=== PATIENT | female | born 1975 | race Caucasian/White ===

== ENCOUNTER 2017-02-01 20:17 | Emergency (ER) | payer MEDICAID, OTHER ==
[~2017-02-01] VITALS: Ht 160 cm; Wt 102.5 kg
[~2017-02-01 20:17] MED LIST: CELE40TA PO; GLUCTAB PO; METF-324 PO; SPIR100 PO; SPRI28TA PO; SYNT112T PO
[2017-02-01 20:22] VITALS: BP 162/89; PULSE 127; RESP 20; TEMP 100.3; O2SAT 94
[2017-02-01 20:35] VITALS: BP 135/85; PULSE 114; RESP 16; O2SAT 95
--- NOTE | 2017-02-01 20:53 | PD ---
HPI Chief Complaint: Fever Time Seen by Provider: 20:50 Travel History International Travel<30 days: No Contact w/Intl Traveler<30days: No Traveled to known affect area: No History of Present Illness HPI The patient is a 41-year-old female that complains of a fever (she did not take her temperature at home), nausea with vomiting, sore throat, dizziness, bilateral ear pain which is intermittent and low back/right hip pain. The patient's symptoms started yesterday morning. She denies any cough or shortness of breath. She denies any diarrhea. She denies any blood in the vomitus. PFSH Past Medical History Anxiety: Yes Diminished Hearing: No Reproductive: Yes (POLYCISTIC OVARIES) Immunizations Current: Yes Thyroid Disease: Yes Influenza Vaccination: No ?: Not LMP: 2 WEEKS AGO : 2 Para: 2 Ovarian Cysts: Yes Past Surgical History Section: Yes (X2) Social History Alcohol Use: No Tobacco Use: No (QUIT 1997) Substance Use: No Allergies-Medications (Allergen,Severity, Reaction): Uncoded Allergies: SILK TAPE (Allergy, Severe, HIVES, 02/01/17) Reported Meds & Prescriptions Reported Meds & Active Scripts Active Reported Non-Aspirin Extra Strength (Acetaminophen) 500 Mg Tab 1,000 Mg PO ONCE Review of Systems Except as stated in HPI: all other systems reviewed are Neg Physical Exam Narrative GENERAL: The patient is alert, oriented 3 in moderate apparent distress with her sore throat. Her vital signs show temperature 100.3 and blood pressure 162/ 89 with heart rate of 127 and respirations of 20 with oximetry 94%. SKIN: Focused skin assessment warm/dry. No skin rash is present. HEAD: Atraumatic. Normocephalic. EYES: Pupils equal and round. No scleral icterus. No injection or drainage. ENT: No nasal bleeding or discharge. Mucous membranes pink and moist. The tympanic membranes are clear. The throat shows erythema with exudate around both tonsils. No peritonsillar abscess is noted. NECK: Trachea midline. No JVD. There is no meningismus and the patient flexes neck fully without any hesitation. There are numerous slightly tender lymph nodes along the anterior cervical chain. CARDIOVASCULAR: Regular rate and rhythm. No murmur appreciated. RESPIRATORY: No accessory muscle use. Clear to auscultation. Breath sounds equal bilaterally. GASTROINTESTINAL: Abdomen soft, non-tender, nondistended. Hepatic and splenic margins not palpable. No guarding or rebound is present. MUSCULOSKELETAL: No obvious deformities. No clubbing. No cyanosis. No edema. NEUROLOGICAL: Awake and alert. No obvious cranial nerve deficits. Motor grossly within normal limits. Normal speech. PSYCHIATRIC: Appropriate mood and affect; insight and judgment normal. Data Data Last Documented VS Vital Signs Date Time Temp Pulse Resp B/P (MAP) Pulse Ox O2 Delivery O2 Flow Rate FiO2 02/01/17 22:35 99.5 94 16 126/77 (93) 95 Room Air Orders Orders Complete Blood Count With Diff (02/01/17 20:54) Basic Metabolic Panel (Bmp) (02/01/17 20:54) Group A Rapid Strep Screen (02/01/17 20:54) Monoscreen (02/01/17 20:54) Strep Culture (Group A) (02/01/17 21:14) Lactic Acid (02/01/17 22:03) Chest, Pa & Lat (02/01/17 22:48) Labs Laboratory Tests Test 02/01/17 21:14 02/01/17 22:25 White Blood Count 16.2 TH/MM3 Red Blood Count 4.69 MIL/MM3 Hemoglobin 12.8 GM/DL Hematocrit 38.2 % Mean Corpuscular Volume 81.4 FL Mean Corpuscular Hemoglobin 27.2 PG Mean Corpuscular Hemoglobin Concent 33.4 % Red Cell Distribution Width 13.1 % Platelet Count 293 TH/MM3 Mean Platelet Volume 8.1 FL Neutrophils (%) (Auto) 82.7 % Lymphocytes (%) (Auto) 9.5 % Monocytes (%) (Auto) 7.0 % Eosinophils (%) (Auto) 0.0 % Basophils (%) (Auto) 0.8 % Neutrophils # (Auto) 13.5 TH/MM3 Lymphocytes # (Auto) 1.5 TH/MM3 Monocytes # (Auto) 1.1 TH/MM3 Eosinophils # (Auto) 0.0 TH/MM3 Basophils # (Auto) 0.1 TH/MM3 CBC Comment DIFF FINAL Differential Comment Blood Urea Nitrogen 6 MG/DL Creatinine 0.75 MG/DL Random Glucose 114 MG/DL Calcium Level 8.6 MG/DL Sodium Level 136 MEQ/L Potassium Level 3.5 MEQ/L Chloride Level 103 MEQ/L Carbon Dioxide Level 25.2 MEQ/L Anion Gap 8 MEQ/L Estimat Glomerular Filtration Rate 85 ML/MIN Monoscreen NEG Lactic Acid Level 0.9 mmol/L MDM Medical Decision Making Medical Screen Exam Complete: Yes Emergency Medical Condition: Yes Medical Record Reviewed: Yes Interpretation(s) The strep screen is negative for group A strep antigen. The basic metabolic profile shows a GFR of 85 but is otherwise normal. The CBC shows a white count of 16,000 with 83% neutrophils but is otherwise unremarkable. The mono screen is negative. Differential Diagnosis Strep pharyngitis, mononucleosis, nonspecific viral pharyngitis, sepsis, SIRS, hyper/hypoglycemia, electrolyte disorder Narrative Course It is now 11 PM and the patient does not look toxic, her fever is coming down. Her main complaint is a sore throat. Her main finding is her exudative pharyngitis. Both mono screen and strep screen are negative however it may be a false negative on the strep screen. The white count is elevated as of a bacterial infection is going on. We will give the patient Solu-Medrol and Rocephin IV and prednisone and Keflex by mouth. If worse, she should return to the emergency department. Procedures EKG Prior to Arrival: No EKG Not Completed: EKG Not Medically Necessary Sepsis Criteria SIRS Criteria (2 or more): Heart rate over 90, WBC > 58557, < 4000 or > 10% bands Physician Communication Physician Communication I discussed the patient with Dr. Gaona. Additional Instructions: The prednisone is one tablet daily for 5 days and the Keflex is one tablet 3 times daily for 10 days. Follow-up with your primary care physician. If worse , return to the emergency department. Med/Other Pt SpecificInfo: Prescription(s) given Scripts Cephalexin (Keflex) 500 Mg Capsule 500 MG PO TID for Infection for 10 Days, CAP 0 Refills Prov: South Sprague MD 02/01/17 Prednisone (Prednisone) 50 Mg Tab 50 MG PO DAILY for 5 Days, #5 TAB 0 Refills Prov: South Sprague MD 02/01/17 Disposition: 01 DISCHARGE HOME Condition: Stable South Sprague MD Feb 01, 2017 20:53
[2017-02-01 21:17] LABS: AUTOMATED NEUTROPHIL # 13.5 TH/MM3 (1.8-7.7); BASOPHIL # 0.1 TH/MM3 (0-0.2); BASOPHIL % 0.8 % (0.0-2.0); HEMATOCRIT 38.2 % (35.0-46.0); LYMPH % 9.5 % (9.0-44.0); LYMPHOCYTE # 1.5 TH/MM3 (1.0-4.8); MEAN CELL VOLUME 81.4 FL (80.0-100.0); MEAN CORPUSCULAR HEMOGLOBIN 27.2 PG (27.0-34.0); MEAN CORPUSCULAR HGB CONC 33.4 % (32.0-36.0); NEUT % 82.7 % (16.0-70.0); PLATELET COUNT 293 TH/MM3 (150-450); RED BLOOD COUNT 4.69 MIL/MM3 (4.00-5.30); RED CELL DISTRIBUTION WIDTH 13.1 % (11.6-17.2); WHITE BLOOD COUNT 16.2 TH/MM3 (4.0-11.0)
[2017-02-01 21:18] LABS: HEMO FLAGS DIFF FINAL
[2017-02-01 21:24] LABS: POTASSIUM 3.5 MEQ/L (3.5-5.1)
[2017-02-01 21:27] LABS: BICARBONATE 25.2 MEQ/L (21.0-32.0)
[2017-02-01 21:35] VITALS: BP 131/72; PULSE 98; RESP 16; O2SAT 94
[2017-02-01 22:35] VITALS: BP 126/77; PULSE 94; RESP 16; TEMP 99.5; O2SAT 95
[2017-02-01] MEDS ORDERED: NON-500T10 PO (22:36)
[2017-02-01] MEDS ORDERED: PRED50 PO (23:05)
[2017-02-01] MEDS ORDERED: CEPH-460 PO (23:05)
[2017-02-01] MEDS ORDERED: cefTRIAXone INJ 1,000 MG in SODIUM CHLORIDE 0.9% INJ 100 ML IV ONE (23:15)
[2017-02-01] MEDS ORDERED: methylPREDNISolone SOD SUCC 125 MG/2 ML VIAL IV PUSH ONE (23:15)
--- NOTE | 2017-02-01 23:25 | RADRPT ---
EXAM DATE/TIME: 02/01/2017 23:05 [facility] COMPARISON: No previous studies available for comparison. INDICATIONS : Fever. MEDICAL HISTORY : None. SURGICAL HISTORY : None. ENCOUNTER: Initial ACUITY: 2 days PAIN SCORE: 6/10 LOCATION: Bilateral chest FINDINGS: PA and lateral views of the chest demonstrate the lungs to be symmetrically aerated without evidence of mass, infiltrate or effusion. The cardiomediastinal contours are unremarkable. Osseous structure s are intact. CONCLUSION: No acute disease. There is no evidence of pneumonia. Jayro Curiel MD on February 01, 2017 at 23:23 Board Certified Radiologist. This report was verified electronically.
[2017-02-01 23:35] VITALS: BP 135/74; PULSE 95; RESP 16; O2SAT 97
[2017-02-02 00:15] VITALS: BP 129/72; PULSE 98; RESP 16; O2SAT 97
== END 2017-02-02 00:41 | disposition home or self-care (01) ==
LOC: PHED 20:17
DX: J02.0 Streptococcal pharyngitis (principal); B95.4 Other streptococcus as the cause of diseases classified elsewhere; Z87.891 Personal history of nicotine dependence
CPT/HCPCS: 71020; 80048; 83605; 85025; 86308; 87081; 87880; 96365; 96375; 99284; J0696; J2930

== ENCOUNTER 2017-02-11 18:36 | Emergency (ER) | payer OTHER ==
[~2017-02-11] VITALS: Ht 160 cm; Wt 103.0 kg
[~2017-02-11 18:36] MED LIST changes: -CELE40TA PO; +CEPH-460 PO; -GLUCTAB PO; -METF-324 PO; +NON-500T10 PO; +PRED50 PO; -SPIR100 PO; -SPRI28TA PO; -SYNT112T PO
[2017-02-11 18:41] VITALS: BP 183/104; PULSE 134; RESP 16; TEMP 99.1; O2SAT 95
[2017-02-11 19:12] VITALS: BP 177/118; PULSE 112; RESP 18; O2SAT 99
--- NOTE | 2017-02-11 19:14 | PD ---
HPI Chief Complaint: Cardiac Complaint Time Seen by Provider: 19:06 Travel History International Travel<30 days: No Contact w/Intl Traveler<30days: No Traveled to known affect area: No History of Present Illness HPI The patient was seen and examined in the presence of the nurse. This patient complains of heart palpitations. She felt like her heart was beating fast and beating hard. She did not have chest pain. Duration 2 days. Symptoms are intermittent. Not exertional. No alleviating factors. Symptoms have no exacerbating factors. She denies history of cardiac disease. She does have thyroid problems and is supposed to be on medication but lost health insurance 2 years ago and has not been on it for a while. Denies alcohol or drug use PFSH Past Medical History Anxiety: Yes Diminished Hearing: No Reproductive: Yes (POLYCISTIC OVARIES) Immunizations Current: Yes Thyroid Disease: Yes LMP: 3 WEEKS AGO : 2 Para: 2 Ovarian Cysts: Yes Past Surgical History Section: Yes (X2) Social History Alcohol Use: No Tobacco Use: No (QUIT 1997) Substance Use: No Allergies-Medications (Allergen,Severity, Reaction): Uncoded Allergies: SILK TAPE (Allergy, Severe, HIVES., 02/11/17) Reported Meds & Prescriptions Reported Meds & Active Scripts Active Keflex (Cephalexin) 500 Mg Capsule 500 Mg PO TID 10 Days Prednisone 50 Mg Tab 50 Mg PO DAILY 5 Days Reported Non-Aspirin Extra Strength (Acetaminophen) 500 Mg Tab 1,000 Mg PO ONCE Review of Systems General / Constitutional: No: Fever Eyes: No: Visual changes HENT: No: Headaches Cardiovascular: Positive: Palpitations, Tachycardia, No: Chest Pain or Discomfort Respiratory: No: Shortness of Breath Gastrointestinal: No: Abdominal Pain Genitourinary: No: Dysuria Musculoskeletal: No: Pain Skin: No Rash Neurologic: No: Weakness Psychiatric: No: Depression Endocrine: No: Polydipsia Hematologic/Lymphatic: No: Easy Bruising Physical Exam Narrative GENERAL: Well-nourished, well-developed patient in no apparent distress. SKIN: Focused skin assessment reveals no rash and nodules. Skin is Warm and dry. HEAD: Atraumatic. Normocephalic. EYES: Pupils equal and round. No scleral icterus. No injection or drainage. ENT: No nasal bleeding or discharge. Mucous membranes pink and moist. NECK: Trachea midline. No JVD. CARDIOVASCULAR: Regular rate and rhythm. No murmur appreciated. RESPIRATORY: No accessory muscle use. Clear to auscultation. Breath sounds equal bilaterally. GASTROINTESTINAL: Abdomen soft, non-tender, nondistended. Hepatic and splenic margins not palpable. MUSCULOSKELETAL: No obvious deformities. No clubbing. No cyanosis. No edema. NEUROLOGICAL: Awake and alert. No obvious cranial nerve deficits. Motor grossly within normal limits. Normal speech. PSYCHIATRIC: Appropriate mood and affect; insight and judgment normal. Data Data Last Documented VS Vital Signs Date Time Temp Pulse Resp B/P (MAP) Pulse Ox O2 Delivery O2 Flow Rate FiO2 02/11/17 19:58 98 16 160/79 (106) 98 Room Air 02/11/17 18:41 99.1 Orders Orders Iv Access Insert/Monitor (02/11/17 19:12) Thyroid Stimulating Hormone (02/11/17 19:12) Complete Blood Count With Diff (02/11/17 19:12) Basic Metabolic Panel (Bmp) (02/11/17 19:12) Service Secretary / Telemetry [email or web address] (02/11/17 19:12) Electrocardiogram (02/11/17 ) Ed Discharge Order (02/11/17 21:16) Labs Laboratory Tests Test 02/11/17 19:30 White Blood Count 13.6 TH/MM3 Red Blood Count 4.63 MIL/MM3 Hemoglobin 12.5 GM/DL Hematocrit 37.8 % Mean Corpuscular Volume 81.5 FL Mean Corpuscular Hemoglobin 26.9 PG Mean Corpuscular Hemoglobin Concent 33.0 % Red Cell Distribution Width 13.5 % Platelet Count 296 TH/MM3 Mean Platelet Volume 8.0 FL Neutrophils (%) (Auto) 72.6 % Lymphocytes (%) (Auto) 20.8 % Monocytes (%) (Auto) 4.7 % Eosinophils (%) (Auto) 0.7 % Basophils (%) (Auto) 1.2 % Neutrophils # (Auto) 9.9 TH/MM3 Lymphocytes # (Auto) 2.8 TH/MM3 Monocytes # (Auto) 0.6 TH/MM3 Eosinophils # (Auto) 0.1 TH/MM3 Basophils # (Auto) 0.2 TH/MM3 CBC Comment DIFF FINAL Differential Comment Blood Urea Nitrogen 8 MG/DL Creatinine 0.80 MG/DL Random Glucose 156 MG/DL Calcium Level 8.4 MG/DL Sodium Level 137 MEQ/L Potassium Level 3.6 MEQ/L Chloride Level 103 MEQ/L Carbon Dioxide Level 29.5 MEQ/L Anion Gap 5 MEQ/L Estimat Glomerular Filtration Rate 79 ML/MIN Thyroid Stimulating Hormone 3rd Gen 1.270 uIU/ML MDM Medical Decision Making Medical Screen Exam Complete: Yes Emergency Medical Condition: Yes Medical Record Reviewed: Yes Differential Diagnosis SVT, A. fib, PVCs, Narrative Course I have reviewed the patient's electronic medical record. Patient was seen here a week ago for pharyngitis IV placed I reviewed her EKG which shows sinus tachycardia without ectopy or ST elevation Extended cardiac monitoring reveals sinus rhythm, generally running around 100 CBC is normal Metabolic profile is normal TSH is normal Observed her for 2 and half hours and she is doing fine I don't see any concerning arrhythmia or ectopy She has a follow-up with her physician in 2 days She plans on discussing Holter monitor and other testing Advised to avoid cardiac stimulants such as caffeine and nicotine etc. Diagnosis Primary Impression: Palpitations Additional Impression: Sinus tachycardia Additional Instructions: Avoid cardiac stimulants such as caffeine and nicotine and decongestants The patient was advised to follow up with their physician and return if they worsen. Med/Other Pt SpecificInfo: Other Disposition: 01 DISCHARGE HOME Condition: Stable Mc Tamayo MD Feb 11, 2017 19:14
[2017-02-11 19:26] VITALS: BP 159/90; PULSE 90; RESP 16; O2SAT 97
[2017-02-11 19:46] LABS: AUTOMATED NEUTROPHIL # 9.9 TH/MM3 (1.8-7.7); BASOPHIL # 0.2 TH/MM3 (0-0.2); BASOPHIL % 1.2 % (0.0-2.0); EOSINOPHIL # 0.1 TH/MM3 (0-0.4); EOSINOPHIL % 0.7 % (0.0-4.0); HEMATOCRIT 37.8 % (35.0-46.0); HEMO FLAGS DIFF FINAL; LYMPH % 20.8 % (9.0-44.0); LYMPHOCYTE # 2.8 TH/MM3 (1.0-4.8); MEAN CELL VOLUME 81.5 FL (80.0-100.0); MEAN CORPUSCULAR HEMOGLOBIN 26.9 PG (27.0-34.0); MONO % 4.7 % (0.0-8.0); NEUT % 72.6 % (16.0-70.0); PLATELET COUNT 296 TH/MM3 (150-450); RED BLOOD COUNT 4.63 MIL/MM3 (4.00-5.30); RED CELL DISTRIBUTION WIDTH 13.5 % (11.6-17.2); WHITE BLOOD COUNT 13.6 TH/MM3 (4.0-11.0)
[2017-02-11 19:55] LABS: POTASSIUM 3.6 MEQ/L (3.5-5.1)
[2017-02-11 19:58] VITALS: BP 160/79; PULSE 98; RESP 16; O2SAT 98
[2017-02-11 19:58] LABS: BICARBONATE 29.5 MEQ/L (21.0-32.0)
[2017-02-11 21:42] VITALS: BP 159/72
--- NOTE | 2017-02-12 16:07 | EKG ---
Date Performed: 02/11/2017 Time Performed: 18:44:54 PTAGE: 41 years EKG: SINUS TACHYCARDIA POSSIBLE LEFT ATRIAL ENLARGEMENT NONSPECIFIC T-WAVE ABNORMALITY When comp ared to previous tracing, the nonspecific T wave Changes are new. ABNORMAL RHYTHM ECG PREVIOUS TRACING : 12/12/2011 16.44 DOCTOR: Stephanie Le Interpretating Date/Time 02/12/2017 16:07:15
== END 2017-02-11 22:01 | disposition home or self-care (01) ==
LOC: PHED 18:36
DX: R00.0 Tachycardia, unspecified (principal)
CPT/HCPCS: 80048; 84443; 85025; 93005